=== PATIENT | female | born 1970 | race Caucasian/White ===

== ENCOUNTER 2017-06-10 21:24 | Emergency (ER) | payer OTHER ==
[~2017-06-10 21:24] MED LIST: Iopamidol 370 76% 100 ML VIAL ONE
[2017-06-10 22:52] LABS: #Basophils 0.1 thou/uL (0.0-0.2); #Eosinphils 0.2 thou/uL (0.0-0.7); #Lymphocytes 2.3 thou/uL (1.20-3.40); #Monocytes 0.4 thou/uL (0.11-0.59); #Neutrophils 2.9 thou/uL (1.40-6.50); %Basophils 1.1 % (0.0-1.0); %Eosinophils 2.6 % (0.0-10.0); %Monocytes 7.2 % (0.0-10.0); %Neutrophils 49.2 % (42.0-75.0); Hemoglobin 14.3 g/dL (12.0-16.0); Mean Corpuscular HGB CONC 33.8 g/dL (32.0-36.0); Mean Corpuscular Hemoglobin 29.4 pg (27.0-31.0); Mean Platelet Volume 7.5 fL (7.4-10.4); Platelet Count 230 thou/uL (130-400); Red Blood Cell (RBC) Count 4.85 mill/uL (4.20-5.40); White Blood Cell (WBC) Count 5.8 thou/uL (4.8-10.8)
--- NOTE | 2017-06-10 23:06 | CT ---
CTA OF THE THORAX UTILIZING IV CONTRAST AND 3D REFORMATTED IMAGIN06/10/17 INDICATION: History of DVT with chest pain. FINDINGS: No central or segmental pulmonary embolus is evident. There is a small sub 4 mm pulmonary nodules wit hin the right lung. No suspicious pulmonary nodules evident. No pleural effusion or pneumothorax is e vident. Heart and great vessels appear within normal limits. Visualized upper abdomen demonstrate pos tsurgical change of prior cholecystectomy. No acute osseous abnormality is evident. IMPRESSION: No central or segmental pulmonary embolus. POS: ANGELA
[2017-06-10 23:08] LABS: ALT (SGPT) 12 U/L (8-55); AST (SGOT) 17 U/L (5-34); Alkaline Phosphatase 129 U/L (40-150); Anion Gap 13 mmol/L (10-20); BUN (Urea Nitrogen) 20 mg/dL (7.0-18.7); Bilirubin, Total 0.3 mg/dL (0.2-1.2); CK (CPK) 135 U/L (29-168); Calc. Creatinine Clearance 0 mL/min (70-130); Calcium 9.1 mg/dL (7.8-10.44); Carbon Dioxide 27 mmol/L (22-29); Chloride 105 mmol/L (98-107); Estimated GFR-MDRD 64; Glucose 110 mg/dL (70-105); Lipase 103 U/L (8-78); Potassium 3.7 mmol/L (3.5-5.1); Sodium 141 mmol/L (136-145)
[2017-06-10 23:09] LABS: CKMB 0.9 ng/mL (0-6.6); Troponin I Less than 0.010 ng/mL (< 0.028)
== END 2017-06-10 23:54 | disposition home or self-care (01) ==
LOC: SCSER 21:24
DX: R07.9 Chest pain, unspecified (principal); Z86.718 Personal history of other venous thrombosis and embolism
CPT/HCPCS: 71275; 80053; 82550; 82553; 83690; 83880; 84484; 85025; 93005

== ENCOUNTER 2024-10-20 19:42 | Emergency (ER) | payer BC, OTHER ==
[2024-10-20] MEDS ORDERED: Glucagon 1 MG/ML KIT ONE (20:19)
[2024-10-20] MEDS ORDERED: Ondansetron PF 4 MG/2 ML Vial ONE (20:21)
== END 2024-10-20 22:08 | disposition home or self-care (01) ==
LOC: ERS 19:42
DX: T18.128A Food in esophagus causing other injury, initial encounter (principal)
CPT/HCPCS: 96374; 96375; J1611; J2405; J3360